=== PATIENT | male | born 1965 | race Caucasian/White ===

== ENCOUNTER 2021-12-22 17:51 | Emergency (ER) | payer OTHER ==
[~2021-12-22] VITALS: Ht 167.6 cm; Wt 77.1 kg
[2021-12-22 18:10] VITALS: BP 144/81
[2021-12-22] MEDS ORDERED: methocarbamoL 500 MG TAB PO STA (22:32)
[2021-12-22] MEDS ORDERED: LIDOCAINE 5% 1 EA PATCH TP STA (22:32)
[2021-12-22] MEDS ORDERED: KETOROLAC 15 MG/ML VIAL IM ONE (22:35)
[2021-12-22] MEDS ORDERED: methylPREDNISolone SS 125 MG in WATER STERILE 2 ML IM ONE (22:35)
[2021-12-22] MEDS ORDERED: LID5T TP (22:38)
[2021-12-22] MEDS ORDERED: IBUP-2213 PO (22:38)
[2021-12-22] MEDS ORDERED: PRED20TA5 PO (22:41)
[2021-12-22] MEDS ORDERED: WATER STERILE 10 ML MC ONE (22:42)
[2021-12-22] MEDS ORDERED: methylPREDNISolone SS 125 MG/2 ML VIAL ONE (22:42)
[2021-12-22 22:53] VITALS: BP 142/85
--- NOTE | 2021-12-22 22:53 | NUR ---
Patient discharged with v/s stable. Written and verbal after care instructions given and explained. Patient alert, oriented and verbalized understanding of instructions. Wheel Chair Assisted with to car. All questions addressed prior to discharge. ID band removed. Patient advised to follow up with PMD. Rx of LIDODERM AND IBUPROFEN given. Patient educated on indication of medication including possible reaction and side effects. Opportunity to ask questions provided and answered.
== END 2021-12-22 22:53 | disposition home or self-care (01) ==
LOC: MED 17:51
DX: S39.012A Strain of muscle, fascia and tendon of lower back, initial encounter (principal); Z79.899 Other long term (current) drug therapy; Z79.1 Long term (current) use of non-steroidal anti-inflammatories (NSAID); X58.XXXA Exposure to other specified factors, initial encounter; Y92.89 Other specified places as the place of occurrence of the external cause; Y93.89 Activity, other specified; Y99.8 Other external cause status
CPT/HCPCS: 96372; 99284; J1885; J2930